=== PATIENT | female | born 2000 | race Native Hawaiian/Other Pacific Islander ===

== ENCOUNTER 2022-06-24 09:30 | Observation (INO) | payer MEDICAID ==
[2022-06-24] MEDS ORDERED: PREN-96 PO (11:09)
[2022-06-24 11:24] LABS: Urine Bacteria NONE SEEN /hpf (None Seen); Urine Blood 3+ /uL (Negative); Urine Specific Gravity 1.013 (1.001-1.035); Urine WBC 233 /hpf (0 - 5)
[2022-06-24 11:29] LABS: Amphetamine Screen, Urine NEGATIVE (NEGATIVE); Barbiturate Scree,Urine NEGATIVE (NEGATIVE); Benzodiazephine Screen, Urine NEGATIVE (NEGATIVE); Cannabinoid Screen, Urine POSITIVE (NEGATIVE); Cocaine Screen, Urine NEGATIVE (NEGATIVE); Opiate Scree,Urine NEGATIVE (NEGATIVE); Phencyclidine Screen, Urine NEGATIVE (NEGATIVE)
== END 2022-06-24 12:09 | disposition home or self-care (01) ==
LOC: UNDOADMOB 09:30 → LDRP 09:30 → UNDODISOB 12:09
PROVIDERS: ADMIT Obstetrics & Gynecology; ATTEND Obstetrics & Gynecology
DX: O23.02 Infections of kidney in pregnancy, second trimester (principal); N13.6 Pyonephrosis; Z3A.21 21 weeks gestation of pregnancy; Z91.040 Latex allergy status; Z87.891 Personal history of nicotine dependence
CPT/HCPCS: 59025; 76775; 80307; 81001; 81002; G0378

== ENCOUNTER 2022-07-09 08:53 | Observation (INO) | payer MEDICAID ==
[~2022-07-09] VITALS: Ht 162.6 cm; Wt 86.6 kg
[~2022-07-09 08:53] MED LIST: PREN-96 PO
[2022-07-09 10:40] LABS: Urine Bacteria FEW /hpf (None Seen); Urine Blood 2+ /uL (Negative); Urine Hyaline Cast FEW /lpf (0 - 2); Urine Specific Gravity 1.008 (1.001-1.035); Urine WBC 79 /hpf (0 - 5); Urine WBC Clumps PRESENT /hpf (None Seen)
[2022-07-09] MEDS ORDERED: LACTATED RINGER'S 1,000 ML IV ONE (11:30)
== END 2022-07-09 13:35 | disposition home or self-care (01) ==
LOC: LDRP 08:53
PROVIDERS: ADMIT Obstetrics & Gynecology; ATTEND Obstetrics & Gynecology
DX: O26.892 Other specified pregnancy related conditions, second trimester (principal); R10.2 Pelvic and perineal pain; O62.9 Abnormality of forces of labor, unspecified; Z3A.23 23 weeks gestation of pregnancy
CPT/HCPCS: 59025; 76815; 81001; 81002; 87086; 94760; G0378

== ENCOUNTER 2022-07-11 18:38 | Observation (INO) | payer MEDICAID ==
[2022-07-11] MEDS ORDERED: NITR100C6 PO (19:58)
== END 2022-07-11 20:52 | disposition home or self-care (01) ==
LOC: LDRP 18:38
PROVIDERS: ADMIT Obstetrics & Gynecology Obstetrics; ATTEND Obstetrics & Gynecology Obstetrics
DX: O36.8320 Maternal care for abnormalities of the fetal heart rate or rhythm, second trimester, not applicable or unspecified (principal); O42.912 Preterm premature rupture of membranes, unspecified as to length of time between rupture and onset of labor, second trimester; O26.892 Other specified pregnancy related conditions, second trimester; D72.829 Elevated white blood cell count, unspecified; Z3A.23 23 weeks gestation of pregnancy
CPT/HCPCS: 59025; 76815; 81002; 94760; G0378

== ENCOUNTER 2022-08-15 09:42 | Observation (INO) | payer MEDICAID ==
[~2022-08-15 09:42] MED LIST changes: +NITR100C6 PO
[2022-08-15] MEDS ORDERED: CEPH-322 PO (10:18)
[2022-08-15 16:43] LABS: Urine Specific Gravity 1.009 (1.001-1.035)
[2022-08-15 16:44] LABS: Urine Blood 2+ /uL (Negative)
[2022-08-15 17:00] LABS: Urine Bacteria FEW /hpf (None Seen)
== END 2022-08-15 10:38 | disposition home or self-care (01) ==
LOC: UNDOADMOB 09:42 → LDRP 09:42
PROVIDERS: ADMIT Obstetrics & Gynecology Obstetrics; ATTEND Obstetrics & Gynecology Obstetrics
DX: O23.43 Unspecified infection of urinary tract in pregnancy, third trimester (principal); O62.9 Abnormality of forces of labor, unspecified; Z3A.28 28 weeks gestation of pregnancy; O21.2 Late vomiting of pregnancy; Z91.040 Latex allergy status; Z87.891 Personal history of nicotine dependence
CPT/HCPCS: 59025; 81002; 81003; 81015; 94760; G0378

== ENCOUNTER 2022-09-18 12:50 | Observation (INO) | payer MEDICAID ==
[~2022-09-18] VITALS: Ht 162.6 cm; Wt 72.6 kg
[~2022-09-18 12:50] MED LIST changes: +CEPH-322 PO
[2022-09-18] MEDS ORDERED: LACTATED RINGER'S 1,000 ML IV ONE (13:30)
[2022-09-18] MEDS ORDERED: ceFAZolin 2 GM in D5W 5% 100 ML IV ONE (13:30)
== END 2022-09-18 15:03 | disposition home or self-care (01) ==
LOC: LDRP 12:50
PROVIDERS: ADMIT Obstetrics & Gynecology; ATTEND Obstetrics & Gynecology
DX: O62.9 Abnormality of forces of labor, unspecified (principal); O26.893 Other specified pregnancy related conditions, third trimester; K92.0 Hematemesis; O26.833 Pregnancy related renal disease, third trimester; N15.9 Renal tubulo-interstitial disease, unspecified; O23.43 Unspecified infection of urinary tract in pregnancy, third trimester; O99.891 Other specified diseases and conditions complicating pregnancy; M54.9 Dorsalgia, unspecified; Z3A.33 33 weeks gestation of pregnancy
CPT/HCPCS: 59025; 81002; 96365; G0378; J0690; J7060; 96360; 96361

== ENCOUNTER 2022-10-25 07:36 | Inpatient (IN) | payer MEDICAID ==
[~2022-10-25] VITALS: Ht 162.6 cm; Wt 104.3 kg
[~2022-10-25 07:36] MED LIST changes: -CEPH-322 PO
[2022-10-25] MEDS ORDERED: LIDOCAINE 2%HCL (LOCAL ANESTH.) INJ 20ML MDV IJ PRN (08:15)
[2022-10-25] MEDS ORDERED: PROMETHAZINE HCL 25 MG/ML 1ML IV PRN (08:15)
[2022-10-25] MEDS ORDERED: BUTORPHANOL TARTRATE 2 MG/1 ML VIAL IV PRN ×2 (08:15)
[2022-10-25] MEDS ORDERED: PENICILLIN G POT 5MIL/D5 50ML 50 ML IV ONE (09:15)
[2022-10-25] MEDS ORDERED: miSOPROStol 50 MCG per PRE-CUT 1/2 TAB PO PRN (09:15)
[2022-10-25 09:27] LABS: Basophils # (auto) 0 10 ^3/uL (0-0.2); Basophils % (auto) 0.2 % (0.0-2.0); Eosinophils # (auto) 0.1 10 ^3/uL (0-0.8); Eosinophils % (auto) 1.4 % (0.0-7.0); Hemoglobin 11.4 g/dL (12.2-16.2); Lymphocytes # (auto) 1.9 10 ^3/uL (0.4-5.4); Lymphocytes % (auto) 23.8 % (10.0-50.0); Mean Corpuscular Hemoglobin 31.9 pg (28.0-32.0); Mean Corpuscular Hgb Conc. 35.5 g/dL (32.0-36.0); Mean Corpuscular Volume 89.8 fL (80.0-100.0); Monocytes # (auto) 0.7 10 ^3/uL (0-1.3); Neutrophils # (auto) 5.2 10 ^3/uL (1.6-8.6); Neutrophils % (auto) 65.6 % (37.0-80.0); Nucleated Red Blood Cells % 0.1 %; Red Blood Cells 3.57 10^6/uL (4.0-5.20); Red Cell Distribution Width 15.3 % (11.8-14.3)
[2022-10-25] MEDS: LACTATED RINGER'S 1,000 ML IV SCH ×2 (09:40→18:42)
[2022-10-25 09:41] LABS: INR 0.92 (0.9-1.15); Partial Thromboplastin Time 27.1 sec (24.6-33.4)
[2022-10-25 09:42] LABS: Alcohol, Urine < 3.0 mg/dL (0-10); Benzodiazephine Screen, Urine NEGATIVE (NEGATIVE); Cannabinoid Screen, Urine POSITIVE (NEGATIVE)
[2022-10-25 09:45] LABS: Albumin 2.4 g/dL (3.4-5.0); Calcium 8.4 mg/dL (8.5-10.1); Potassium 3.6 mmol/L (3.5-5.1)
[2022-10-25 09:48] LABS: BUN/Creatinine Ratio 21.4; Bilirubin, Total 0.3 mg/dL (0.2-1.0); Total Protein 6.4 g/dL (6.4-8.2)
[2022-10-25 09:51] LABS: Amphetamine Screen, Urine NEGATIVE (NEGATIVE); Barbiturate Scree,Urine NEGATIVE (NEGATIVE); Cocaine Screen, Urine NEGATIVE (NEGATIVE); Opiate Scree,Urine NEGATIVE (NEGATIVE); Phencyclidine Screen, Urine NEGATIVE (NEGATIVE)
[2022-10-25 10:57] LABS: Urine Bacteria NONE SEEN /hpf (None Seen); Urine Blood Negative /uL (Negative); Urine Mucus FEW (None Seen); Urine Specific Gravity 1.017 (1.001-1.035); Urine WBC 24 /hpf (0 - 5)
[2022-10-25] MEDS ORDERED: PENICILLIN G POTASSIUM 2,500,000 UNITS in D5W 5% 50 ML IV SCH (13:15)
[2022-10-25] MEDS ORDERED: TERBUTALINE SULFATE 1 MG/ML 1ML VIAL SC PRN (14:00)
[2022-10-25] MEDS ORDERED: LACT. RINGERS/OXYTOCIN 20UNITS 1,000 ML IV SCH (14:00)
[2022-10-25] MEDS ORDERED: LACT. RINGERS/OXYTOCIN 20UNITS 500 ML IV ONE ×2 (14:00→14:30)
[2022-10-25] MEDS ORDERED: fentaNYL CITRATE 100 MCG/2 ML VL IV ONE (14:00)
[2022-10-25] MEDS ORDERED: ROPIVACAINE HCL 200 ML EPI SCH (14:00)
[2022-10-25] MEDS ORDERED: LACTATED RINGER'S 1,000 ML IV ONE (14:00)
[2022-10-25] MEDS ORDERED: ePHEDrine SULFATE 50 MG/ML AMP IV ONE (14:00)
[2022-10-25] MEDS ORDERED: LIDOCAINE HCL 2 %PF INJ 10ML AMP IJ ONE (15:02)
[2022-10-25] MEDS ORDERED: LIDOCAINE 2%HCL (LOCAL ANESTH.) INJ 20ML MDV ONE (18:39)
[2022-10-25] MEDS ORDERED: METHYLERGONOVINE MALEATE 0.2 MG/ML AMP IM ONE (18:39)
[2022-10-25] MEDS: WITCH HAZEL-GLYCERIN PAD TOP PRN (18:42)
[2022-10-25] MEDS: PHISODERM TOP SOLN 240ML BTL TOP PRN (18:42)
[2022-10-25] MEDS: DERMOPLAST 60ML BOTTLE TOP PRN (18:42)
[2022-10-25] MEDS ORDERED: ONDANSETRON ODT 4 MG TAB PO PRN (22:30)
[2022-10-25] MEDS ORDERED: IBUPROFEN 600 MG TAB PO PRN (22:30)
[2022-10-25] MEDS ORDERED: ACETAMINOPHEN 325 MG TAB PO PRN (22:30)
[2022-10-26] MEDS ORDERED: IBUPROFEN 800 MG TAB PO SCH
[2022-10-26 03:00] VITALS: BP 120/70
[2022-10-26 06:07] LABS: RPR Non Reactive (Non Reactive)
[2022-10-26 07:00] VITALS: BP 128/86
[2022-10-26 10:45] VITALS: BP 118/56
[2022-10-26 14:36] VITALS: BP 115/59
[2022-10-26 19:30] VITALS: BP 112/62
[2022-10-26] MEDS ORDERED: DOCU100C10 PO (19:54)
[2022-10-26] MEDS ORDERED: IBU600T PO (19:54)
[2022-10-26] MEDS ORDERED: ACET325T10 PO (19:54)
[2022-10-26] MEDS ORDERED: PREN-96 PO (19:54)
[2022-10-26] MEDS ORDERED: DOCUSATE SOD 100 MG CAP PO SCH (22:00)
[2022-10-26 22:30] VITALS: BP 118/70
[2022-10-26] MEDS: PHISODERM TOP SOLN 240ML BTL TOP PRN (22:58)
[2022-10-26] MEDS: DERMOPLAST 60ML BOTTLE TOP PRN (22:58)
[2022-10-26] MEDS: WITCH HAZEL-GLYCERIN PAD TOP PRN (22:58)
== END 2022-10-26 23:20 | disposition home or self-care (01) | DRG 560 ==
LOC: LDRP 07:36 → OBSVTOIN 07:36 → LDRP 07:37
PROVIDERS: ADMIT Obstetrics & Gynecology; ATTEND Obstetrics & Gynecology
PROC: 10E0XZZ Delivery of Products of Conception, External Approach (ICD-10-PCS; principal; 2022-10-25)
PROC: 0HQ9XZZ Repair Perineum Skin, External Approach (ICD-10-PCS; 2022-10-25)
PROC: 3E0R3BZ Introduction of Anesthetic Agent into Spinal Canal, Percutaneous Approach (ICD-10-PCS; 2022-10-25)
PROC: 00HU33Z Insertion of Infusion Device into Spinal Canal, Percutaneous Approach (ICD-10-PCS; 2022-10-25)
DX: O40.3XX0 Polyhydramnios, third trimester, not applicable or unspecified (principal); Z37.0 Single live birth; O70.0 First degree perineal laceration during delivery; Z20.822 Contact with and (suspected) exposure to COVID-19; Z3A.38 38 weeks gestation of pregnancy
CPT/HCPCS: 36415; 59025; 59409; 62282; 80053; 80307; 81001; 81002; 85025; 85610; 85730; 86592; 86850; 86900; 86901; 87426; 94760; 96360; 96361; 96365; 96366; G0378; J2540; J2590; J7060